=== PATIENT | female | born 1980 ===

== ENCOUNTER 2019-06-17 11:30 | Inpatient (IN) | payer OTHER ==
[~2019-06-17] VITALS: Ht 157.5 cm; Wt 80.7 kg
[2019-06-17] MEDS ORDERED: MULTI VITAMIN1 EACH PO (12:57)
[2019-06-17] MEDS ORDERED: VITAMIN D35000 UNI2 PO (12:58)
[2019-06-17] MEDS ORDERED: VITAMIN K100 MCG PO (12:58)
[2019-06-17] MEDS ORDERED: FLAXSEED1000 MG PO (12:58)
[2019-06-25] MEDS ORDERED: IBUPROFEN800 MG PO (10:45)
[2019-06-25] MEDS ORDERED: DOCUSATE SODIU100 MG PO (10:45)
[2019-06-25] MEDS ORDERED: ALBUTEROL2.5 MG/3 M IH (10:45)
== END 2019-06-25 10:52 | disposition home or self-care (01) | DRG 743 ==
LOC: OB/GYN 06-22 05:20 → O/R 06-22 05:20 → RECOVERY 06-22 07:00 → OB/GYN 06-22 10:26 → O/R 06-22 11:30 → RECOVERY 06-22 11:30 → OB/GYN 06-25 10:52
PROVIDERS: Obstetrics & Gynecology; ADMIT Obstetrics & Gynecology
PROC: 0UT70ZZ Resection of Bilateral Fallopian Tubes, Open Approach (ICD-10-PCS; 2019-06-22)
PROC: 3E0F7GC Introduction of Other Therapeutic Substance into Respiratory Tract, Via Natural or Artificial Opening (ICD-10-PCS; 2019-06-22)
PROC: 0UT90ZZ Resection of Uterus, Open Approach (ICD-10-PCS; principal; 2019-06-22 07:00)
DX: D25.1 Intramural leiomyoma of uterus (principal); D25.2 Subserosal leiomyoma of uterus; N84.0 Polyp of corpus uteri; J45.20 Mild intermittent asthma, uncomplicated